=== PATIENT | female | born 1975 | race African-American/Black ===

== ENCOUNTER 2019-01-09 10:51 | Inpatient (IN) | payer MEDICARE, MEDICAID ==
[~2019-01-09] VITALS: Ht 167.6 cm; Wt 98.0 kg
[~2019-01-09 10:51] MED LIST: FOLIC ACID1 MG PO; HYDROCODONE-APA1 TAB PO; IPRAT-ALBUT 0.5-3 ML INH; LEVAQUIN PREMI750 MG PO; LEVAQUIN750 MG PO; NICODERM C1 PATCH .2 TRANSDERM; TREXALL10 MG PO
--- NOTE | 2019-01-09 11:19 | NUR ---
INFLUENZA SWAB COLLECTED AND SENT TO LAB.
[2019-01-09 11:25] LABS: BASOPHILS 0.6 % (0-2); EOSINOPHILS 5.5 % (0-7); HEMATOCRIT 43.3 % (36.0-48.0); HEMOGLOBIN 14.2 g/dL (12-16); IMMATURE GRANULOCYTES 0.3 % (0-5); LYMPHOCYTES 24.4 % (15-50); MCH 28.7 pg (26.0-34.0); MCHC 32.8 g/dL (31.0-37.0); MCV 87.7 fL (80.0-100.0); MEAN PLATELET VOLUME 10.5 fL (7.4-10.4); NEUTROPHILS 56.2 % (40-80); PLATELET COUNT 259 10x3/uL (130-400); RBC 4.94 10x6/uL (4.00-5.40); RDW 14.6 % (11.5-14.5); WBC 6.7 10x3/uL (4.8-10.8)
[2019-01-09 11:40] LABS: APTT 26.7 SECONDS (22.8-39.4); INR 1.09 (0.85-1.17); PROTIME 13.6 SECONDS (11.6-15.0)
[2019-01-09 11:45] LABS: ALKALINE PHOSPHATASE 224 U/L (46-116); ALT (SGPT) 26 U/L (10-68); BILIRUBIN - TOTAL 0.74 mg/dL (0.2-1.3); CALC OSMOLALITY 277 mosm/kg (275-300); CALCIUM 9.1 mg/dL (8.5-10.1); CARBON DIOXIDE 22.8 mmol/L (21.0-32.0); CHLORIDE - SERUM 104 mmol/L (98-107); CREATININE - SERUM 1.3 mg/dL (0.6-1.3); POTASSIUM - SERUM 3.9 mmol/L (3.5-5.1); PROTEIN - SERUM 8.1 g/dL (6.4-8.2); SODIUM 139 mmol/L (136-145); UREA NITROGEN 12 mg/dL (7-18); eGFR NON AFRICAN AMERICAN 47 mL/min (90-120)
[2019-01-09 11:49] LABS: GLUCOSE 98 mg/dL (74-106)
[2019-01-09 11:57] LABS: CKMB 0.3 U/L (0.0-3.6); CREATINE KINASE 72 UL (21-215); PRO BNP 153 pg/mL (0-125)
[2019-01-09 11:58] LABS: TROPONIN-I < 0.017 ng/mL (0.000-0.060)
--- NOTE | 2019-01-09 12:20 | NUR ---
PATIENT TO RESTROOM WITHOUT ASSIST. NO NEEDS NOTED UPDATED ON PLAN OF CARE AND DELAYS IN CARE. WILL CONTINUE TO MONITOR.
[2019-01-09 13:04] VITALS: BP 119/86
[2019-01-09] MEDS ORDERED: LYRICA75 MG PO (14:20)
[2019-01-09] MEDS ORDERED: NAPROXEN375 M1 PO (14:22)
[2019-01-09] MEDS ORDERED: OMEPRAZOLE20 M1 PO (14:23)
[2019-01-09] MEDS ORDERED: ZANAFLEX2 M1 PO (14:23)
[2019-01-09 14:25] VITALS: BP 120/80; BMI 34.9
--- NOTE | 2019-01-09 18:23 | HP ---
PATIENT: GABRIEL PEDROZA MEDICAL RECORD: [id number] ACCOUNT: [id number] LOCATION:D.MS [id number] : 71 ADMISSION DATE: 01/09/19 PCP: ALLEN CAZARES MD HISTORY AND PHYSICAL EXAMINATION DATE OF ADMISSION: 01/09/2019 CHIEF COMPLAINT: Shortness of breath, fever, and cough. HISTORY: This is a 43-year-old -[place] female who has pulmonary sarcoidosis, followed by senior advisor at [facility]. She has had a fairly chronic cough now since August, but she had acute onset last night of increased shortness of breath, wheeze, and fever up to 101, so she came in to be evaluated. In the ED, she was positive for both influenza A and B. She did have her flu shot this year. CBC was normal. Chest x-ray showed early pneumonia. She is admitted. PAST MEDICAL AND SURGICAL HISTORY: Sarcoidosis, followed at [facility]; cataracts; arthritis; and history of cervical cancer. 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 ALLERGIES: SULFA AND TAPE. HOME MEDICATIONS: Methotrexate four pills every Thursday. She is supposed to be on folic acid every day, but forgets. She takes tizanidine 2 mg twice a day and Lyrica 75 mg twice a day. She sometimes takes prednisone. She has it worked out from the senior advisor at [facility] that she will take up to 40 mg a day for increased respiratory problems and then come back off of it. HABITS: She does smoke "a little." No alcohol or drugs. SOCIAL HISTORY: She has lived in [place] for about 4 years. She is single. She lives alone. Her primary care doctor is in [place] because she states she cannot find a primary care doctor here that will take her. She sees a senior advisor at [facility] for her sarcoid. FAMILY HISTORY: Father of recurrent colon cancer. He also had heart attack. Mother is alive. She has diabetes. REVIEW OF SYSTEMS: GENERAL: No major weight changes. HEENT: No particular sinus or allergy problems. RESPIRATORY: She has pulmonary sarcoidosis. CARDIAC: No history of chest pain or palpitations. No history of heart disease. GASTROINTESTINAL: No diarrhea, constipation, or heartburn. GENITOURINARY: No significant problems there. MUSCULOSKELETAL: Few joint aches and pains. PSYCHIATRIC: No depression or melancholia. NEUROLOGIC: No migraines or seizure. PHYSICAL EXAMINATION: VITAL SIGNS: Temperature 99.9, pulse 94, respirations 18, and blood pressure HISTORY AND PHYSICAL [id number] ABEBE RAY,GABRIEL L 138/80. GENERAL: She does not appear in acute distress currently. HEENT: Grossly within normal limits. NECK: She has palpable mass on the right side of her neck, is being followed by [facility], probably sarcoid. HEART: Regular rate and rhythm without murmur. LUNGS: Mild diffuse wheezes. ABDOMEN: Soft. EXTREMITIES: No edema. LABORATORY DATA: Influenza A positive. Influenza B positive. CBC with white count of 6700, hemoglobin 14.2, and hematocrit 43.3. INR 1.09. Basic metabolic panel is all normal. Liver functions are okay except alkaline phosphatase elevated at 224. Troponin is negative. ProBNP 153. DIAGNOSTIC DATA: Chest x-ray; minimal airspace disease in medial lung bases. May relate to atelectasis and/or early pneumonia. ASSESSMENT: 1. Pneumonia. 2. Influenza A. 3. Influenza B. 4. Pulmonary sarcoidosis, on methotrexate. PLAN: We will admit. Start Zithromax, Rocephin, and Tamiflu. We will give steroids and breathing treatments. Other tests or procedures as warranted. TRANSINT:[id number] Voice Confirmation ID: [id number] DOCUMENT ID: [id number] ALLEN CAZARES MD at 1823 CC: [id number] DICTATION DATE: 01/09/19 1545 BENDING ROLL HAND: 01/09/19 1635 ADM IN [facility] [place] [id number] [place] [address]
--- NOTE | 2019-01-09 19:18 | NUR ---
AZYTHROMYCIN INFUSING. PT CALLS ME AND WELPS ARE APPEARING ON CHEST. STOPPED INFUSION. CALLED DR CAZARES WHO DC ORDER. DC ROCEPHIN AND STARTED LEVAQUIN. FAMILY AT BEDSIDE. NO S/S OF ACUTE DISTRESS. CL IN PLACE.
--- NOTE | 2019-01-09 19:58 | NUR ---
RECEIVED REPORT, ASSUMED CARE, DENIES NEEDS, FAMILY AT BEDSIDE, CALL LIGHT IN REACH, BED LOWEST POSITION, LAC SL, NO S/S OF DISTRESS NOTED, BREATHING EVEN UNLABORED, SITTING UP IN BED, WILL CONTINUE POC
[2019-01-09 20:00] VITALS: BP 129/80
[2019-01-10] VITALS: BP 91/46
--- NOTE | 2019-01-10 02:05 | NUR ---
patient in bed with no s/s of distress no neededs noted resting resprations even and unlabored call light in reach.
[2019-01-10 03:00] VITALS: BP 94/53
[2019-01-10 06:32] LABS: BASOPHILS 0.2 % (0-2); EOSINOPHILS 0 % (0-7); HEMATOCRIT 42.7 % (36.0-48.0); HEMOGLOBIN 13.9 g/dL (12-16); IMMATURE GRANULOCYTES 0.2 % (0-5); LYMPHOCYTES 21.3 % (15-50); MCH 28.2 pg (26.0-34.0); MCHC 32.6 g/dL (31.0-37.0); MCV 86.6 fL (80.0-100.0); MEAN PLATELET VOLUME 10.8 fL (7.4-10.4); NEUTROPHILS 77.3 % (40-80); PLATELET COUNT 255 10x3/uL (130-400); RBC 4.93 10x6/uL (4.00-5.40); RDW 14.6 % (11.5-14.5)
[2019-01-10 06:45] LABS: ANION GAP 16.3 mmol/L (8-16); CALCIUM 9.5 mg/dL (8.5-10.1); CREATININE - SERUM 1.3 mg/dL (0.6-1.3); POTASSIUM - SERUM 4.3 mmol/L (3.5-5.1)
[2019-01-10 07:24] LABS: WBC 4.8 10x3/uL (4.8-10.8)
--- NOTE | 2019-01-10 07:45 | NUR ---
REPORT RECIEVED ASSUMED CARE. PATIENT IN BED WITH IV INTACT. NO COMPLAINTS OR SIGNS OF DISTRESS. CALL LIGHT WITHIN REACH.
[2019-01-10 08:03] VITALS: BP 120/72
--- NOTE | 2019-01-10 08:22 | NUR ---
PATIENT RECIEVED SCHEDULED MEDS. JUDY STARTED IVPB. NO COMPLAINTS OR SIGNS OF DISTRESS. CALL LIGHT WITHIN REACH.
--- NOTE | 2019-01-10 09:30 | NUR ---
PATIENT IN BED WITH IV INTACT. ANTIBIOTIC INFUSING AT THIS TIME. PATIENT STATES HER LEGS ARE TINGLING AND THAT SHE FEELS HIGH. EXPLAINED TO PATIENT THAT I HAVENT GIVEN HER ANYTHING THAT SHOULD MAKE HER FEEL THAT WAY UNLESS IT IS HER LYRICA. PATIENT VERBALIZED UNDERSTANDING. THEN STATES THAT SHE THINKS IT WAS THE LOVENOX SHOT. EXPLAINED TO PATIENT THAT THE LOVENOX DOES NOT HAVE THOSE KIND OF SIDE EFFECTS. PATIENT STATED PROBABLY JUST BECAUSE SHE WASNT FEELING WELL. EXPLAINED I WOULD CONTINUE TO MONITOR HER. CALL LIGHT JAMES RIOS.
--- NOTE | 2019-01-10 10:45 | NUR ---
PATIENT IV OUT. STATED SHE TRIED TO KEEP IT IN. EXPLAINED IT WAS OK WOULD JUST RESTART A NEW ONE WHEN SHE NEEDED IT. VERBALIZED UNDERSTANDING. NO COMPLAINTS OR SIGNS OF DISTRESS AT THIS TIME. CALL LIGHT WITHIN REACH.
[2019-01-10 12:08] VITALS: BP 108/71
[2019-01-10 12:29] VITALS: Ht 167.6 cm; Wt 98.0 kg
--- NOTE | 2019-01-10 14:18 | NUR ---
PATIENT IN BED WITH NO COMPLAINTS OR SIGNS OF DISTRESS. EYES CLOSED RESTING QUIETLY. CALL LIGHT WITHIN REACH.
--- NOTE | 2019-01-10 17:00 | NUR ---
IV STARTED IN LEFT HAND. 22G X 3 STICKS. PATIENT TOLERATED WITH SMALL AMOUNT OF PAIN. CALL LIGHTW ITHIN REACH.
--- NOTE | 2019-01-10 19:45 | NUR ---
PT RESTING IN BED. ALERT AND ORIENTED. NO SIGNS OF DISTRESS. BREATHING EVEN AND UNLABORED. PT STATES NO PROBLEMS AT THIS TIME. IV SITE RT HAND DRESSING CLEAN DRY AND INTACT. NO SIGNS OF INFECTION. SKIN CLEAN DRY AND INTACT. NO SIGNS OF INFECTION ANYWHERE. BOWEL SOUNDS ACTIVE. NO LOWER LEG SWELLING PRESENT. BED LOWERED AND LOCKED. BED RAILS UP X1. WILL CONTINUE PLAN OF CARE. CALL LIGHT IN REACH.
[2019-01-10 20:55] VITALS: BP 113/69
[2019-01-11 02:14] VITALS: BP 85/55
[2019-01-11 04:32] VITALS: BP 98/74
--- NOTE | 2019-01-11 05:00 | NUR ---
EYES CLOSED RESPOIRATIONS WITH EASE AND UNLABORED. SR UP X2 CALL LIGHT WITHIN REACH.
--- NOTE | 2019-01-11 09:46 | NUR ---
PT ON CL COMPLAINSOF BURNING AND ITCHING AT IV SITE UP HER ARM, PT STATED THIS HAPPENED WITH LAST ABX WELL. SLOWED RATE TO [address] COURTNEY OFFICE AND RELAYED MESSAGE TO APRIL SUTTON. APRIL CALLED BACK STATING DR CAZARES ADVISED TO CEASE MEDICATION AND HE WILL ADRESS WHEN HE COMES OVER, WENT TO STOP IV AND PT STATED A LOT BETTER SINCE I SLOWED RATE DOWN, PT REQUESTED ABX NOT BE STOPPED AND TO CONTINUE TO RUN AT SLOWER RATE. CALLED DR ESPINO OFFICE BACK AND LET APRIL KNOW PT REQUEST
--- NOTE | 2019-01-11 10:31 | NUR ---
PT STATED SHE IS VERY TIRED THIS MORNING, UNABLE TO FINISH BREAKFAST, STATED SHE WAS UP ALOT AND WALKED A LOT LAST NIGHT, ENCOURAGED PT TO GET PLEANTY OF REST AND FLUIDS IN ORDER TO GET BETTER OR WILL CONTINUE TO HAVE SPURTS OF EXHAUSTION. CONTINUE WITH PLAN OF CARE
[2019-01-11 12:04] VITALS: BP 106/47
--- NOTE | 2019-01-11 13:42 | NUR ---
CIERRAVD CALL FROM PT SISTER STATING SHE RECEIVED CALL FROM PT STATING NO ONE HAS BEEN IN TO CHECK ON HER AND THAT SHE IS VERY WEAK TODAY. WENT TO CHECK ON PT AGAIN AND SHE STATED SHE HAS BEEN ASLEEP AND UNAWARE OF SAYING ANYTHING LIKE THATNO NEEDS VOICED, CONTINUE WITH PLAN OF CARE
--- NOTE | 2019-01-11 16:15 | NUR ---
PT SITTING IN CHAIR AT BEDSIDE, STATED SHE HAD TO GO OUTSIDE FOR FRESH AIR, C/O DRY MOUTH ASKED HER IF SHE WOULD LIKE HER O2 HUMIDIFIED PT DECLINED, REQUESTED HARD CANDY AND ICE CHIPS, NOOTHER NEEDS VOICED, CONTINUE WITH PLAN OF CARE
[2019-01-11 17:24] VITALS: BP 106/56
--- NOTE | 2019-01-11 20:45 | NUR ---
UP AMBULATING IN HALLWAY WITH MASK ON. RESP UNLABORED. NO DISTRESS NOTED.SL TO RIGHT HAND INTACT WITHOUT REDNESS OR EDEMA NOTED. CL IN REACH
[2019-01-12 00:11] VITALS: BP 123/71
--- NOTE | 2019-01-12 02:46 | NUR ---
RESTING QUITELY IN BED RESP UNLABORED, NO APPPARENT DISTRESS CALL HARDY RIOS
[2019-01-12 04:33] VITALS: BP 115/62
--- NOTE | 2019-01-12 06:22 | NUR ---
RESTING QUIELTY.NO COMPLAITNS VOICED. CL IN REACH
--- NOTE | 2019-01-12 08:17 | NUR ---
PT SITTING UP IN BED PLAYING ON COMPUTER. NO S/S OF ACUTE DISTRESS. CL IN PLACE.
[2019-01-12 09:00] VITALS: BP 124/77
--- NOTE | 2019-01-12 12:25 | NUR ---
NUTRITION F/U CHART REVIEWED. PT VISIT. TOLERATING REG DIET WITH GOOD INTAKE RECENT MEALS. WILL CONTINUE TO PROVIDE DIET, HONOR FOOD PREFERENCES. RD FOLLOWING
[2019-01-12 13:56] VITALS: BP 133/85
--- NOTE | 2019-01-12 16:08 | MORECARE ---
CASE MANAGEMENT DISCHARGE SUMMARY PATIENT: GABRIEL PEDROZA UNIT: [id number] ADM DATE: 01/09/19 AGE: 43 : 71 SEX: F ROOM/BED: D.2228 AUTHOR: LARISA MCNEAL PHYSICIAN: REFERRING PHYSICIAN: ALLEN CAZARES MD DATE OF SERVICE: 01/12/19 Discharge Plan Patient Name: GABRIEL PEDROZA Facility: [facility]:[place] : 1975 Planned Disposition: Anticipated Discharge Date: Discharge Date: Expected LOS: Initial Reviewer: [email or web address] Initial Review Date: 01/12/2019 Generated: 01/12/19 5:08 pm Comments DCP- Discharge Planning Updated by [email or web address]: Judy Norton on 01/12/19 2:[address] I have attempted to meet with patient yesterday and now, she is not in the room. I will attempt again later. CM will continue to follow and assist with discharge planning/needs. Patient Name: GABRIEL PEDROZA Page [id number] at 1608 All edits/amendments must be made on the electronic document DICTATION DATE: 01/12/191606 ASP NET SOFTWARE DEVELOPER: LIZZY 01/12/191606 RPT#: [id number] DC DATE: STATUS: ADM IN [facility] [address] [place] [address] END OF REPORT
--- NOTE | 2019-01-12 19:45 | NUR ---
PT RESTING IN BED. ALERT AND ORIENTED. NO SIGNS OF DISTRESS. BREATHING EVEN AND UNLABORED. PT STATES NO PROBLEMS AT THIS TIME. SKIN CLEAN DRY AND INTACT. IV SITE LT AC DRESSING CLEAN DRY AND INTACT. NO SIGNS OF INFECTION. BOWEL SOUNDS ACTIVE. NO LOWER LEG SWELLING PRESENT. WILL CONTINUE PLAN OF CARE. CALL LIGHT IN REACH. BED LOWERED AND LOCKED. BED RAILS UP X1.
--- NOTE | 2019-01-12 20:22 | NUR ---
IV NOT FLUSHING. DC IV WITH TIP INTACT. RESITED IV TO L AC. FLUSHED WELL. NO S/S OF ACUTE DISTRESS. CL IN PLACE.
--- NOTE | 2019-01-13 05:51 | NUR ---
EYES CLOSED RESPIRATIONS WITH EASE AND UNLABORED. SR UP X2 CALL LIGHT WITHIN REACH.
--- NOTE | 2019-01-13 07:01 | NUR ---
MORNING ASSESSMENT COMPLETE. SEE ASSESSMENT FLWJOSEEET FOR FURTHER DETAILS. PT LYING IN BED AAO X4 TO PERSON, PLACE, TIME, AND SITUATION. DENIES NEEDS RO CONCERNS AT THIS TIME. NO SIGNS OF DISTRESS NOTED. CL IN REACH. SIDE RAILS UP X3 FOR PATIENT SAFETY
[2019-01-13] MEDS ORDERED: LEVAQUIN750 MG PO (08:23)
[2019-01-13] MEDS ORDERED: ROBITUSSIN AC (WITH PO (08:24)
[2019-01-13 08:38] VITALS: BP 133/42
--- NOTE | 2019-01-13 09:01 | MORECARE ---
CASE MANAGEMENT DISCHARGE SUMMARY PATIENT: GABRIEL PEDROZA UNIT: [id number] ADM DATE: 01/09/19 AGE: 43 : 71 SEX: F ROOM/BED: D.2228 AUTHOR: LARISA MCNEAL PHYSICIAN: REFERRING PHYSICIAN: ALLEN CAZARES MD DATE OF SERVICE: 01/13/19 Discharge Plan Patient Name: GABRIEL PEDROZA Facility: [facility]:[place] : 1975 Planned Disposition: Home Anticipated Discharge Date: 01/13/19 Discharge Date: Expected LOS: 4 Initial Reviewer: [email or web address] Initial Review Date: 01/13/2019 Generated: 01/13/19 10:01 am Comments DCP- Discharge Planning Updated by [email or web address]: Judy Norton on 01/12/19 2:[address] I have attempted to meet with patient yesterday and now, she is not in the room. I will attempt again later. CM will continue to follow and assist with discharge planning/needs. Last DP export: 01/12/19 3:08 p Patient Name: GABRIEL PEDROZA Page [id number] at 0901 All edits/amendments must be made on the electronic document DICTATION DATE: 01/13/19899 CONFERENCE ASSISTANT: LIZZY 01/13/19 09 RPT#: [id number] DC DATE: STATUS: ADM IN [facility] [address] [place] [address] END OF REPORT
--- NOTE | 2019-01-13 09:09 | MORECARE ---
CASE MANAGEMENT DISCHARGE SUMMARY PATIENT: GABRIEL PEDROZA UNIT: [id number] ADM DATE: 01/09/19 AGE: 43 : 73 SEX: F ROOM/BED: D.2228 AUTHOR: LARISA MCNEAL PHYSICIAN: REFERRING PHYSICIAN: ALLEN CAZARES MD DATE OF SERVICE: 01/13/19 Discharge Plan Patient Name: GABRIEL PEDROZA Facility: [facility]:[place] : 1975 Planned Disposition: Home Anticipated Discharge Date: 01/13/19 Discharge Date: Expected LOS: 4 Initial Reviewer: [email or web address] Initial Review Date: 01/13/2019 Generated: 01/13/19 10:09 am Comments DCP- Discharge Planning Updated by [email or web address]: Judy Norton on 01/13/19 8:[address] Patient Name: GABRIEL PISANO Admission Status: ER Accout number: [id number] Admission Date: 01-09-2019 : 1975 Admission Diagnosis: Attending: ALLEN CAZARES Current LOS: 4 Anticipated DC Date: 01-13-2019 Planned Disposition: Home Primary Insurance: [facility] MEDICARE SOLUTIONS Discharge Planning Comments: CM met with patient, she is alone in the room. States she lives alone. States she is independent with all ADL's and IADL's. States she will "have someone take me home" when asked about discharge transportation. States she does have a nebulizer that she believes comes from [employer] on [address]. States she needs new tubing. I have asked RT to do a walk test for possible need for home oxygen. CM will continue to follow and assist with discharge planning/needs. Band Ripsaw Operator: Judy Norton DCP- Discharge Planning Updated by [email or web address]: Judy Norton on 01/12/19 2:[address] I have attempted to meet with patient yesterday and now, she is not in the room. I will attempt again later. CM will continue to follow and assist with discharge planning/needs. DCPIA - Discharge Planning Initial Assessment Updated by [email or web address]: Judy Norton on 01/13/19 9:05 am * Is the patient Alert and Oriented? Yes * How many steps to enter\\exit or inside your home? 0/0 * PCP Dr. Cazares for [place] Dr. Shani Campbell for Sarcoidosis * Pharmacy [facility] * Preadmission Environment Home Alone * ADLs Independent * Equipment Cane Nebulizer * List name and contact numbers for known caregivers / representatives who currently or will assist patient after discharge: Car Blake [phone] * Verbal permission to speak to the caregivers and representatives has been obtained from the patient. Yes * Community resources currently utilized None * Additional services required to return to the preadmission environment? No * Can the patient safely return to the preadmission environment? Yes * Has this patient been hospitalized within the prior 30 days at any hospital? No Last DP export: 01/13/19 8:01 a Patient Name: GABRIEL PEDROZA Page [id number] at 0909 All edits/amendments must be made on the electronic document DICTATION DATE: 01/13/19908 MANAGER ATHLETICS: LIZZY 01/13/19908 RPT#: [id number] DC DATE: STATUS: ADM IN [facility] [address] [place] [address] END OF REPORT
--- NOTE | 2019-01-13 09:31 | MORECARE ---
CASE MANAGEMENT DISCHARGE SUMMARY PATIENT: GABRIEL PEDROZA UNIT: [id number] ADM DATE: 01/09/19 AGE: 43 : 71 SEX: F ROOM/BED: D.2228 AUTHOR: LARISA MCNEAL PHYSICIAN: REFERRING PHYSICIAN: ALLEN CAZARES MD DATE OF SERVICE: 01/13/19 Discharge Plan Patient Name: GABRIEL PEDROZA Facility: [facility]:[place] : 1975 Planned Disposition: Home Anticipated Discharge Date: 01/13/19 Discharge Date: Expected LOS: 4 Initial Reviewer: [email or web address] Initial Review Date: 01/13/2019 Generated: 01/13/19 10:30 am Comments DCP- Discharge Planning Updated by [email or web address]: Judy Norton on 01/13/19 8:[address] Patient Name: GABRIEL PISANO Admission Status: ER Accout number: [id number] Admission Date: 01-09-2019 : 1975 Admission Diagnosis: Attending: ALLEN CAZARES Current LOS: 4 Anticipated DC Date: 01-13-2019 Planned Disposition: Home Primary Insurance: [facility] MEDICARE SOLUTIONS Discharge Planning Comments: CM met with patient, she is alone in the room. States she lives alone. States she is independent with all ADL's and IADL's. States she will "have someone take me home" when asked about discharge transportation. States she does have a nebulizer that she believes comes from [facility] on [address]. States she needs new tubing. I have asked RT to do a walk test for possible need for home oxygen. CM will continue to follow and assist with discharge planning/needs. Bearing Maker: Judy Norton DCP- Discharge Planning Updated by [email or web address]: Judy Norton on 01/12/19 2:[address] I have attempted to meet with patient yesterday and now, she is not in the room. I will attempt again later. CM will continue to follow and assist with discharge planning/needs. DCPIA - Discharge Planning Initial Assessment Updated by [email or web address]: Judy Norton on 01/13/19 9:05 am * Is the patient Alert and Oriented? Yes * How many steps to enter\\exit or inside your home? 0/0 * PCP Dr. Cazares for [place] Dr. Shani Campbell for Sarcoidosis * [facility] * Preadmission Environment Home Alone * ADLs Independent * Equipment Cane Nebulizer * List name and contact numbers for known caregivers / representatives who currently or will assist patient after discharge: Car bergman - [phone] * Verbal permission to speak to the caregivers and representatives has been obtained from the patient. Yes * Community resources currently utilized None * Additional services required to return to the preadmission environment? No * Can the patient safely return to the preadmission environment? Yes * Has this patient been hospitalized within the prior 30 days at any hospital? No External Providers External Provider: [id number] Next Contact Date: Service Request Date: Service Type: Resolution: Reviewer: Comments: Last DP export: 01/13/19 8:09 a Patient Name: GABRIEL PEDROZA Page [id number] at 0931 All edits/amendments must be made on the electronic document DICTATION DATE: 01/13/19929 POLICE MANAGER: LIZZY 01/13/19929 RPT#: [id number] DC DATE: STATUS: ADM IN [facility] [address] [place] [address] END OF REPORT
--- NOTE | 2019-01-13 09:57 | MORECARE ---
CASE MANAGEMENT DISCHARGE SUMMARY PATIENT: GABRIEL PEDROZA UNIT: [id number] ADM DATE: 01/09/19 AGE: 43 : 71 SEX: F ROOM/BED: D.2228 AUTHOR: ELIZABET,DOC PHYSICIAN: REFERRING PHYSICIAN: ALLEN CAZARES MD DATE OF SERVICE: 01/13/19 Discharge Plan Patient Name: GABRIEL PEDROZA Facility: [facility]:[place] : 1975 Planned Disposition: Home Anticipated Discharge Date: 01/13/19 Discharge Date: Expected LOS: 4 Initial Reviewer: [email or web address] Initial Review Date: 01/13/2019 Generated: 01/13/19 10:57 am Comments DCP- Discharge Planning Updated by [email or web address]: Judy Norton on 01/13/19 8:[address] [facility] is out of business, [facility] does not have nebulizer supplies at this time. I called [facility] [employer] and faxed clinical for new nebulizer tubing, they will mail to home, patient agrees. She has number and address on DME form for [employer]. DCP- Discharge Planning Updated by [email or web address]: Judy Norton on 01/13/19 8:[address] Patient Name: GABRIEL PISANO Admission Status: ER Accout number: [id number] Admission Date: 01-09-2019 : 1975 Admission Diagnosis: Attending: ALLEN CAZARES Current LOS: 4 Anticipated DC Date: 01-13-2019 Planned Disposition: Home Primary Insurance: [facility] MEDICARE SOLUTIONS Discharge Planning Comments: CM met with patient, she is alone in the room. States she lives alone. States she is independent with all ADL's and IADL's. States she will "have someone take me home" when asked about discharge transportation. States she does have a nebulizer that she believes comes from [facility] on [address]. States she needs new tubing. I have asked RT to do a walk test for possible need for home oxygen. CM will continue to follow and assist with discharge planning/needs. Nutritional Chemist: Judy Norton DCP- Discharge Planning Updated by [email or web address]: Judy Norton on 01/12/19 2:[address] I have attempted to meet with patient yesterday and now, she is not in the room. I will attempt again later. CM will continue to follow and assist with discharge planning/needs. DCPIA - Discharge Planning Initial Assessment Updated by [email or web address]: Judy Norton on 01/13/19 9:05 am * Is the patient Alert and Oriented? Yes * How many steps to enter\\exit or inside your home? 0/0 * PCP Dr. Cazares for [place] Dr. Shani Hilario - [place] for Sarcoidosis * [facility] * Preadmission Environment Home Alone * ADLs Independent * Equipment Cane Nebulizer * List name and contact numbers for known caregivers / representatives who currently or will assist patient after discharge: Car bergman - [phone] * Verbal permission to speak to the caregivers and representatives has been obtained from the patient. Yes * Community resources currently utilized None * Additional services required to return to the preadmission environment? No * Can the patient safely return to the preadmission environment? Yes * Has this patient been hospitalized within the prior 30 days at any hospital? No Last DP export: 01/13/19 8:30 a Patient Name: GABRIEL PEDROZA Page 98199 at 0957 All edits/amendments must be made on the electronic document DICTATION DATE: 01/13/19956 SPOOL WORKER: LIZZY 01/13/19956 RPT#: [id number] DC DATE: STATUS: ADM IN [facility] [address] [place] [address] END OF REPORT
--- NOTE | 2019-01-13 10:51 | MORECARE ---
CASE MANAGEMENT DISCHARGE SUMMARY PATIENT: GABRIEL PEDROZA UNIT: [id number] ADM DATE: 01/09/19 AGE: 43 : 71 SEX: F ROOM/BED: D.2228 AUTHOR: LARISA MCNEAL PHYSICIAN: REFERRING PHYSICIAN: ALLEN CAZARES MD DATE OF SERVICE: 01/13/19 Discharge Plan Patient Name: GABRIEL PEDROZA Facility: [facility]:[place] : 1975 Planned Disposition: Home Anticipated Discharge Date: 01/13/19 Discharge Date: Expected LOS: 4 Initial Reviewer: [email or web address] Initial Review Date: 01/13/2019 Generated: 01/13/19 11:51 am Comments DCP- Discharge Planning Updated by [email or web address]: Judy Norton on 01/13/19 9:[address] Her room air sat is 100% resting and with exertion, does not qualify for home oxygen. I notified Celena she will only need the nebulizer tubing for her nebulizer. Home today. DCP- Discharge Planning Updated by [email or web address]: Judy Norton on 01/13/19 8:54 am [facility] is out of business, [facility] does not have nebulizer supplies at this time. I called [facility] [employer] and faxed clinical for new nebulizer tubing, they will mail to home, patient agrees. She has number and address on DME form for [employer]. DCP- Discharge Planning Updated by [email or web address]: Judy Norton on 01/13/19 8:[address] Patient Name: GABRIEL PISANO Admission Status: ER Accout number: [id number] Admission Date: 01-09-2019 : 1975 Admission Diagnosis: Attending: ALLEN CAZARES Current LOS: 4 Anticipated DC Date: 01-13-2019 Planned Disposition: Home Primary Insurance: [facility] MEDICARE SOLUTIONS Discharge Planning Comments: CM met with patient, she is alone in the room. States she lives alone. States she is independent with all ADL's and IADL's. States she will "have someone take me home" when asked about discharge transportation. States she does have a nebulizer that she believes comes from [facility] on [address]. States she needs new tubing. I have asked RT to do a walk test for possible need for home oxygen. CM will continue to follow and assist with discharge planning/needs. Lead Web Application Developer: Judy Norton DCP- Discharge Planning Updated by [email or web address]: Judy Norton on 01/12/19 2:[address] I have attempted to meet with patient yesterday and now, she is not in the room. I will attempt again later. CM will continue to follow and assist with discharge planning/needs. DCPIA - Discharge Planning Initial Assessment Updated by [email or web address]: Judy Norton on 01/13/19 9:05 am * Is the patient Alert and Oriented? Yes * How many steps to enter\\exit or inside your home? 0/0 * PCP Dr. Cazares for [place] Dr. Shani Campbell for Sarcoidosis * Pharmacy [facility] * Preadmission Environment Home Alone * ADLs Independent * Equipment Cane Nebulizer * List name and contact numbers for known caregivers / representatives who currently or will assist patient after discharge: Car bergman - [phone] * Verbal permission to speak to the caregivers and representatives has been obtained from the patient. Yes * Community resources currently utilized None * Additional services required to return to the preadmission environment? No * Can the patient safely return to the preadmission environment? Yes * Has this patient been hospitalized within the prior 30 days at any hospital? No Last DP export: 01/13/19 8:57 a Patient Name: GABRIEL PEDROZA Page [id number] at 1051 All edits/amendments must be made on the electronic document DICTATION DATE: 01/13/19 1051 SOLID DIE CUTTER: LIZZY 01/13/19 1051 RPT#: [id number] DC DATE: STATUS: ADM IN [facility] [address] [place] [address] END OF REPORT
--- NOTE | 2019-01-13 11:30 | NUR ---
PT D/C HOME VIA W/C WITH [id number]. WENT OVER ALL D/C IN STRUCTIONS; PATIENT STATES UNDERSTANDING.
--- NOTE | 2019-01-14 16:55 | MORECARE ---
CASE MANAGEMENT DISCHARGE SUMMARY PATIENT: GABRIEL PEDROZA UNIT: [id number] ADM DATE: 01/09/19 AGE: 43 : 71 SEX: F ROOM/BED: D.2228 AUTHOR: LARISA MCNEAL PHYSICIAN: REFERRING PHYSICIAN: ALLEN CAZARES MD DATE OF SERVICE: 01/14/19 Discharge Plan Patient Name: GABRIEL PEDROZA Facility: [facility]:[place] : 1975 Planned Disposition: Home Anticipated Discharge Date: 01/13/19 Discharge Date: 01/13/2019 Expected LOS: 4 Initial Reviewer: [email or web address] Initial Review Date: 01/13/2019 Generated: 01/14/19 5:54 pm Comments DCP- Discharge Planning Updated by [email or web address]: Judy Norton on 01/13/19 9:[address] Her room air sat is 100% resting and with exertion, does not qualify for home oxygen. I notified Celena she will only need the nebulizer tubing for her nebulizer. Home today. DCP- Discharge Planning Updated by [email or web address]: Judy Norton on 01/13/19 8:54 am [facility] is out of business, [facility] does not have nebulizer supplies at this time. I called [facility] and faxed clinical for new nebulizer tubing, they will mail to home, patient agrees. She has number and address on DME form for [facility]. DCP- Discharge Planning Updated by [email or web address]: Judy Norton on 01/13/19 8:[address] Patient Name: GABRIEL PISANO Admission Status: ER Accout number: [id number] Admission Date: 01-09-2019 : 1975 Admission Diagnosis: Attending: ALLEN CAZARES Current LOS: 4 Anticipated DC Date: 01-13-2019 Planned Disposition: Home Primary Insurance: [facility] MEDICARE SOLUTIONS Discharge Planning Comments: CM met with patient, she is alone in the room. States she lives alone. States she is independent with all ADL's and IADL's. States she will "have someone take me home" when asked about discharge transportation. States she does have a nebulizer that she believes comes from [facility] on [address]. States she needs new tubing. I have asked RT to do a walk test for possible need for home oxygen. CM will continue to follow and assist with discharge planning/needs. Transportation Project Manager: Judy Norton DCP- Discharge Planning Updated by [email or web address]: Judy Norton on 01/12/19 2:[address] I have attempted to meet with patient yesterday and now, she is not in the room. I will attempt again later. CM will continue to follow and assist with discharge planning/needs. DCPIA - Discharge Planning Initial Assessment Updated by [email or web address]: Judy Norton on 01/13/19 9:05 am * Is the patient Alert and Oriented? Yes * How many steps to enter\\exit or inside your home? 0/0 * PCP Dr. Cazares for [place] Dr. Shani Cambpell for Sarcoidosis * [facility] * Preadmission Environment Home Alone * ADLs Independent * Equipment Cane Nebulizer * List name and contact numbers for known caregivers / representatives who currently or will assist patient after discharge: Car bergman - [phone] * Verbal permission to speak to the caregivers and representatives has been obtained from the patient. Yes * Community resources currently utilized None * Additional services required to return to the preadmission environment? No * Can the patient safely return to the preadmission environment? Yes * Has this patient been hospitalized within the prior 30 days at any hospital? No Last DP export: 01/13/19 9:51 a Patient Name: GABRIEL PEDROZA Page [id number] at 1655 All edits/amendments must be made on the electronic document DICTATION DATE: 01/14/191653 KRAFT MILL OPERATOR: LIZZY 01/14/191653 RPT#: [id number] DC DATE:01/13/19 STATUS: DIS IN [facility] [address] [place] [address] END OF REPORT
== END 2019-01-13 12:16 | disposition home or self-care (01) | DRG 195 ==
LOC: D.ER 10:51 → D.MS 13:15 → D.EDHOLD 13:15 → D.MS 13:24
PROVIDERS: Family Medicine; ADMIT Family Medicine
DX: J11.00 Influenza due to unidentified influenza virus with unspecified type of pneumonia (principal); D86.9 Sarcoidosis, unspecified; J09.X2 Influenza due to identified novel influenza A virus with other respiratory manifestations; D86.0 Sarcoidosis of lung; L27.1 Localized skin eruption due to drugs and medicaments taken internally; T50.995A Adverse effect of other drugs, medicaments and biological substances, initial encounter

== ENCOUNTER 2019-09-18 22:03 | Inpatient (IN) | payer MEDICARE, MEDICAID ==
[~2019-09-18] VITALS: Ht 167.6 cm; Wt 99.8 kg
[~2019-09-18 22:03] MED LIST changes: +LYRICA75 MG PO; +NAPROXEN375 M1 PO; +OMEPRAZOLE20 M1 PO; +ROBITUSSIN AC (WITH PO; +ZANAFLEX2 M1 PO
[2019-09-18 22:39] LABS: EOSINOPHILS 7.6 % (0-7); HEMATOCRIT 42.8 % (36.0-48.0); HEMOGLOBIN 14.1 g/dL (12-16); IMMATURE GRANULOCYTES 0.2 % (0-5); LYMPHOCYTES 29.6 % (15-50); MCHC 32.9 g/dL (31.0-37.0); MCV 88.1 fL (80.0-100.0); MEAN PLATELET VOLUME 10.4 fL (7.4-10.4); MONOCYTES 10.7 % (2-11); NEUTROPHILS 50.9 % (40-80); PLATELET COUNT 259 10x3/uL (130-400); RBC 4.86 10x6/uL (4.00-5.40); RDW 14.7 % (11.5-14.5); WBC 6.2 10x3/uL (4.8-10.8)
[2019-09-18 22:46] LABS: INR 0.98 (0.85-1.17); PROTIME 12.5 SECONDS (11.6-15.0)
[2019-09-18 22:48] LABS: CALC OSMOLALITY 276 mosm/kg (275-300); CALCIUM 8.8 mg/dL (8.5-10.1); CHLORIDE - SERUM 106 mmol/L (98-107); CREATININE - SERUM 1.2 mg/dL (0.6-1.3); POTASSIUM - SERUM 3.5 mmol/L (3.5-5.1); SODIUM 139 mmol/L (136-145); UREA NITROGEN 8 mg/dL (7-18); eGFR NON AFRICAN AMERICAN 51 mL/min (90-120)
[2019-09-18 22:51] LABS: GLUCOSE 113 mg/dL (74-106)
[2019-09-18 23:01] LABS: ALBUMIN 3.3 g/dL (3.4-5.0); ALKALINE PHOSPHATASE 250 U/L (46-116); ALT (SGPT) 34 U/L (10-68); BILIRUBIN - TOTAL 0.58 mg/dL (0.2-1.3); CKMB 0.3 U/L (0.0-3.6); CREATINE KINASE 88 UL (21-215); PRO BNP 51 pg/mL (0-125); PROTEIN - SERUM 7.8 g/dL (6.4-8.2)
[2019-09-18 23:03] LABS: TROPONIN-I < 0.017 ng/mL (0.000-0.060)
[2019-09-18 23:30] VITALS: BP 134/90
--- NOTE | 2019-09-18 23:36 | NUR ---
RT AT PT BEDSIDE.
--- NOTE | 2019-09-19 00:13 | NUR ---
PT UPDATED ON PLAN OF CARE. PT PROVIDED SODA PER PT REQUEST. PT ALSO PROVIDED BLANKETS FOR COMFORT.
[2019-09-19] MEDS ORDERED: TUMS X-STR300 MG PO (01:27)
[2019-09-19] MEDS ORDERED: PROMETHAZINE W473 ML PO (01:29)
[2019-09-19 01:50] VITALS: BP 125/86; BMI 35.6
[2019-09-19 07:39] LABS: BASOPHILS 0.9 % (0-2); EOSINOPHILS 6.7 % (0-7); HEMATOCRIT 39.5 % (36.0-48.0); IMMATURE GRANULOCYTES 0.4 % (0-5); MCH 28.8 pg (26.0-34.0); MCHC 32.9 g/dL (31.0-37.0); MCV 87.4 fL (80.0-100.0); MEAN PLATELET VOLUME 10.2 fL (7.4-10.4); MONOCYTES 13.6 % (2-11); NEUTROPHILS 50.4 % (40-80); PLATELET COUNT 231 10x3/uL (130-400); RBC 4.52 10x6/uL (4.00-5.40); RDW 14.6 % (11.5-14.5); WBC 5.7 10x3/uL (4.8-10.8)
--- NOTE | 2019-09-19 07:54 | NUR ---
AWAKE AND ALERT. ORIENTED X3. NON PRODUCTIVE COUGH NOTED. C/O HEADACHE R/T COUGH. REQUESTED AND GIVNE 650 MG TYLENOL PO FOR SAME. WILL MONITOR. LUNGS ARE CLEAR BUT DIMINISHED IN LOWER LOBES. SKIN IS INTACT WITHOUT REDNESS. IV TO LEFT WRIST IS PATENT WITHOUT REDNESS AT INSERTION SITE. DENIES NEEDS.
[2019-09-19 08:36] VITALS: BP 118/81
--- NOTE | 2019-09-19 10:00 | NUR ---
HEADACHE IMPROVED AFTER TYLENOL. DENIES NEEDS. UP PERFORMING ADL'S AT THIS TIME.
[2019-09-19 12:48] VITALS: BP 112/69
[2019-09-19 14:12] VITALS: BMI 35.5
[2019-09-19 14:22] LABS: UDS - AMPHET NEGATIVE QUAL (NEGATIVE); UDS - BARB NEGATIVE QUAL (NEGATIVE); UDS - BENZO NEGATIVE QUAL (NEGATIVE); UDS - COCAINE NEGATIVE QUAL (NEGATIVE); UDS - OPIATE POSITIVE QUAL (NEGATIVE); UDS - PCP NEGATIVE QUAL (NEGATIVE); UDS - THC NEGATIVE QUAL (NEGATIVE)
[2019-09-19 16:30] VITALS: BP 100/68
--- NOTE | 2019-09-19 18:38 | NUR ---
ATE ALMOST ALL OF SUPPER TRAY. DENIES NEEDS. NO CHANGES NOTED.
--- NOTE | 2019-09-19 19:15 | NUR ---
PATIENT SITTING UP IN BED. PATIENT WANTS TO BE DISCONNECTED FROM TELEMETRY TO TAKE A SHOWER. DISCONNECTED PATIENT. ENCOURAGE PATIENT TO CALL WITH ANY NEEDS.
[2019-09-19 20:00] VITALS: BP 154/101
[2019-09-20] VITALS: BP 136/89
[2019-09-20 04:00] VITALS: BP 122/89
[2019-09-20 06:06] LABS: BASOPHILS 0.9 % (0-2); HEMOGLOBIN 13.4 g/dL (12-16); IMMATURE GRANULOCYTES 0.2 % (0-5); LYMPHOCYTES 29.6 % (15-50); MCH 28.2 pg (26.0-34.0); MCHC 31.9 g/dL (31.0-37.0); MCV 88.2 fL (80.0-100.0); MEAN PLATELET VOLUME 11.3 fL (7.4-10.4); MONOCYTES 9.8 % (2-11); NEUTROPHILS 50.5 % (40-80); PLATELET COUNT 247 10x3/uL (130-400); RBC 4.76 10x6/uL (4.00-5.40); RDW 14.7 % (11.5-14.5); WBC 5.8 10x3/uL (4.8-10.8)
[2019-09-20 06:21] LABS: ANION GAP 11.2 mmol/L (8-16); CALCIUM 10.2 mg/dL (8.5-10.1); CARBON DIOXIDE 26.5 mmol/L (21.0-32.0); CREATININE - SERUM 1.2 mg/dL (0.6-1.3); POTASSIUM - SERUM 3.7 mmol/L (3.5-5.1)
[2019-09-20 08:26] VITALS: BP 132/87
[2019-09-20 08:42] LABS: CKMB 0.4 U/L (0.0-3.6); CREATINE KINASE 59 UL (21-215); TROPONIN-I < 0.017 ng/mL (0.000-0.060)
[2019-09-20 09:02] VITALS: Ht 167.6 cm; Wt 99.8 kg
[2019-09-20] MEDS ORDERED: PERCOCET 5-3251 TAB PO (11:12)
--- NOTE | 2019-09-20 11:24 | NUR ---
PT ALERT X 4. BREATH SOUNDS CLEAR BILAT. TELEMETRY IN PLACE. IV TO LEFT FOREARM, SALINE LOCKED. PT REPORTING PAIN OF 8/10, WILL MONITOR. UPDATED PT MED LIST, PER PT REQUEST. BED LOW, CALL LIGHT IN REACH. NO OTHER NEEDS AT THIS TIME.
[2019-09-20 12:24] VITALS: BP 101/63
[2019-09-20 17:19] VITALS: BP 87/64
[2019-09-20 19:00] VITALS: BP 110/80
--- NOTE | 2019-09-20 23:00 | NUR ---
PT BP 84/54 AFTER RECIEVING BUMEX, PERCOCET, ZANAFLEX, AND LYRICA AT 2100. CALLED CYNTHIA [facility]ICER [facility]N AND MADE HIM AWARE OF LOW BP AND THAT THIS HAPPENED EARLIER TODAY WELL. CYNTHIA ORDERED 500ML BOLUS OF NS AND MONITOR BP, IF NO IMPROVEMENT ORDERED TO CALL BACK. BOLUS GIVEN. WILL CTM
[2019-09-21] VITALS (8 sets, daily range): BP systolic 82–126; BP diastolic 48–83
[2019-09-21 03:06] LABS: APPEARANCE HAZY (CLEAR); BILIRUBIN NEGATIVE (NEGATIVE); COLOR YELLOW (YELLOW); GLUCOSE NEGATIVE (NEGATIVE); KETONE NEGATIVE (NEGATIVE); NITRITE NEGATIVE (NEGATIVE); PROTEIN NEGATIVE (NEGATIVE); SPECIFIC GRAVITY 1.015 (1.005-1.020); UROBILINOGEN NORMAL (NORMAL)
[2019-09-21 03:10] LABS: EPITHELIAL CELLS 0-5 /hpf (0-5)
[2019-09-21 03:11] LABS: BACTERIA MODERATE /hpf (NEGATIVE)
[2019-09-21 06:20] LABS: BASOPHILS 1.1 % (0-2); EOSINOPHILS 7.4 % (0-7); HEMATOCRIT 46.7 % (36.0-48.0); HEMOGLOBIN 14.9 g/dL (12-16); IMMATURE GRANULOCYTES 0.4 % (0-5); MCH 28.6 pg (26.0-34.0); MCHC 31.9 g/dL (31.0-37.0); MCV 89.6 fL (80.0-100.0); MEAN PLATELET VOLUME 10.9 fL (7.4-10.4); MONOCYTES 12.4 % (2-11); NEUTROPHILS 55.7 % (40-80); PLATELET COUNT 245 10x3/uL (130-400); RBC 5.21 10x6/uL (4.00-5.40)
[2019-09-21 06:37] LABS: WBC 7.6 10x3/uL (4.8-10.8)
[2019-09-21 06:38] LABS: ANION GAP 11.8 mmol/L (8-16); CALCIUM 9.9 mg/dL (8.5-10.1); CARBON DIOXIDE 30.3 mmol/L (21.0-32.0); CREATININE - SERUM 1.5 mg/dL (0.6-1.3); POTASSIUM - SERUM 4.1 mmol/L (3.5-5.1)
--- NOTE | 2019-09-21 09:22 | NUR ---
PT ALERT X 4. BREATH SOUNDS CLEAR BILAT. TELEMETRY IN PLACE. IV TO LEFT FOREARM, SALINE LOCKED. PT REPORTING PAIN OF 9/10, MEDICATED PER ORDERS, WILL MONITOR. BED LOW, CALL LIGHT IN REACH. NO OTHER NEEDS AT THIS TIME.
--- NOTE | 2019-09-21 20:04 | NUR ---
HAS BEEN AMBULATING IN HALLWAY WITH MASK ON. PT IN DROPLET ISO FOR FLU. ALERT AND ORIENTED X4. RESP EVEN AND NONLABORED. CHRONIC NONPROD COUGH NOTED. RATES PAIN IN BACK 9. MEDICATED WITH TYLENOL. BBS CTA BUT DIMINISHED IN RLL. NO EDEMA NOTED. SR ELEVATED X2. CL IN REACH.
--- NOTE | 2019-09-21 21:30 | NUR ---
HAD SHOWER AT THIS TIME.
--- NOTE | 2019-09-21 23:28 | NUR ---
AMBULATING IN HALLWAY. DRINKING COFFEE. STATES SHE HAS CHRONIC INSOMNIA. NO DISTRESS. FACE MASK IN USE.
[2019-09-22 01:16] VITALS: BP 124/74
[2019-09-22 04:54] VITALS: BP 115/76
--- NOTE | 2019-09-22 05:00 | NUR ---
RESTING QUIETLY WITH EYES CLOSED. RESP EVEN AND NONLABORED. NO DISTRESS. CL IN REACH.
[2019-09-22 06:34] LABS: BASOPHILS 0.6 % (0-2); EOSINOPHILS 11.2 % (0-7); HEMATOCRIT 41.6 % (36.0-48.0); HEMOGLOBIN 13.3 g/dL (12-16); IMMATURE GRANULOCYTES 0.2 % (0-5); LYMPHOCYTES 29.2 % (15-50); MCH 28.2 pg (26.0-34.0); MCV 88.1 fL (80.0-100.0); MEAN PLATELET VOLUME 11.2 fL (7.4-10.4); MONOCYTES 10.8 % (2-11); PLATELET COUNT 221 10x3/uL (130-400); RBC 4.72 10x6/uL (4.00-5.40); RDW 14.7 % (11.5-14.5)
[2019-09-22 06:54] LABS: ANION GAP 13.1 mmol/L (8-16); CARBON DIOXIDE 26.4 mmol/L (21.0-32.0); CREATININE - SERUM 1.4 mg/dL (0.6-1.3); POTASSIUM - SERUM 3.5 mmol/L (3.5-5.1)
[2019-09-22 06:58] LABS: WBC 5.4 10x3/uL (4.8-10.8)
--- NOTE | 2019-09-22 07:25 | NUR ---
PT RESTING IN BED WATCHING TV. RESP EVEN AND UNLABORED. DENIES PAIN AT THIS TIME. SALINE LOC TO LEFT FOREARM, SITE WITHOUT REDNESS OR EDEMA. PT DENIES FURTHER NEEDS AT THIS TIME. CL WITHIN REACH. ENCOURAGED TO CALL WITH NEEDS. CONTINUE POC
[2019-09-22 08:48] VITALS: BP 112/76
--- NOTE | 2019-09-22 09:02 | MORECARE ---
CASE MANAGEMENT DISCHARGE SUMMARY PATIENT: GABRIEL ABEBE UNIT: [id number] ADM DATE: 09/19/19 AGE: 44 : 71 SEX: F ROOM/BED: D.2204 AUTHOR: LARISA MCNEAL PHYSICIAN: REFERRING PHYSICIAN: AMBROSIO MITCHELL MD DATE OF SERVICE: 09/22/19 Discharge Plan Patient Name: GABRIEL ABEBE Facility: [facility]:[place] : 1975 Planned Disposition: Home or Self Care Anticipated Discharge Date: Discharge Date: Expected LOS: Initial Reviewer: [email or web address] Initial Review Date: 09/19/2019 Generated: 09/22/19 10:01 am Comments DCP- Discharge Planning Updated by [id number]: Soco Hassan on 09/22/19 8:[address] Patient Name: GABRIEL ABEBE Admission Status: ER Accout number: [id number] Admission Date: 09-19-2019 : 1975 Admission Diagnosis: Attending: AMBROSIO MITCHELL Current LOS: 3 Anticipated DC Date: Planned Disposition: Home or Self Care Primary Insurance: [facility] MEDICARE SOLUTIONS Discharge Planning Comments: CM met with patient to complete initial dc planning assessment. CM educated patient on the CM role and verbal consent given by patient to complete assessment. Patient lives at home with her nephew where she stated she is independent with her care. At discharge patient plans to return home and feels this is a safe discharge. Her son will be her regional dedicated truck driver home at [place]. CM discussed availability of home health, rehab services, and medical equipment. She has a nebulizer at home that she gets her meds through [facility]. She did ask about house help. I explained to her about [employer], she did not think she had the correct MAXX, but would like to see if she would qualify for it. [facility] for home instead, I will send a referral to them. IMM served and explained. Patient denied known discharge needs at this time. CM will continue to follow and will assist as needed with dc plans/needs. Facilitator: Soco Hassan DCPIA - Discharge Planning Initial Assessment Updated by [email or web address]: Soco Hassan on 09/22/19 8:58 am * Is the patient Alert and Oriented? Yes * How many steps to enter\exit or inside your home? * PCP [facility] IN [place] * [facility] * Preadmission Environment Home with Family * ADLs Independent * Equipment Nebulizer * List name and contact numbers for known caregivers / representatives who currently or will assist patient after discharge: PUJA ADAM [phone] * Verbal permission to speak to the caregivers and representatives has been obtained from the patient. N/A * Community resources currently utilized None * Additional services required to return to the preadmission environment? Yes * Can the patient safely return to the preadmission environment? Yes * Has this patient been hospitalized within the prior 30 days at any hospital? No Coverage Notice Reviewer: [email or web address] Hassan Notice Issued Date-Time: 09/22/2019 8:50 Notice Type: IM Discharge Notice Notice Delivered To: Patient Relationship to Patient: Stitchdown Thread Laster Name: Delivery Method: HAND - Hand Delivered Roslyn Days: Prior Verbal Notification: Recipient Understood Notice: Yes Recipient Signature: Yes Med Rec Note Co-signed by Attending: Coverage Notice Comment: Reviewer: [id number] Hassan Notice Issued Date-Time: 09/22/2019 8:50 Notice Type: Patient Choice Letter Notice Delivered To: Patient Relationship to Patient: Stitchdown Thread Laster Name: Delivery Method: HAND - Hand Delivered Roslyn Days: Prior Verbal Notification: Recipient Understood Notice: Yes Recipient Signature: Yes Med Rec Note Co-signed by Attending: Coverage Notice Comment: [facility] Patient Name: GABRIEL ABEBE Page 16205 at 0902 All edits/amendments must be made on the electronic document DICTATION DATE: 09/22/19900 SEX WORKER OR ESCORT: DM 09/22/19900 RPT#: [id number] DC DATE: STATUS: ADM IN [facility] [address] [place] [address] END OF REPORT
[2019-09-22] MEDS ORDERED: TAMIFLU75 MG PO (09:33)
[2019-09-22] MEDS ORDERED: LEVAQUIN750 MG PO (09:37)
--- NOTE | 2019-09-22 11:09 | NUR ---
PT DISCHARGE INSTRUCTIONS PROVIDED FOR DISCHARGE. DISCUSSED FOLLOW UP APPOINTMENT, CONTINUATION OF HOME MEDICATIONS AND NEW PRESCRIPTIONS, PROVIDED EDUCATION REGARDING DISEASE PROCESS AND NEW MEDICATIONS. PT VOICES UNDERSTANDING, DENYING ANY QUESTIONS AT THIS TIME. IV DISCONTINUED FROM LEFT FOREARM, CATH INTACT.
--- NOTE | 2019-09-22 15:39 | MORECARE ---
CASE MANAGEMENT DISCHARGE SUMMARY PATIENT: GABRIEL ABEBE UNIT: [id number] ADM DATE: 09/19/19 AGE: 44 : 71 SEX: F ROOM/BED: D.2204 AUTHOR: LARISA MCNEAL PHYSICIAN: REFERRING PHYSICIAN: AMBROSIO MITCHELL MD DATE OF SERVICE: 09/22/19 Discharge Plan Patient Name: GABRIEL ABEBE Facility: [facility]:[place] : 1975 Planned Disposition: Home or Self Care Anticipated Discharge Date: Discharge Date: 09/22/2019 Expected LOS: Initial Reviewer: [email or web address] Initial Review Date: 09/19/2019 Generated: 09/22/19 4:39 pm DCP- Discharge Planning Updated by [email or web address]: Soco Hassan on 09/22/19 8:[address] Patient Name: GABRIEL ABEBE Admission Status: ER Accout number: [id number] Admission Date: 09-19-2019 : 1975 Admission Diagnosis: Attending: AMBROSIO MITCHELL Current LOS: 3 Anticipated DC Date: Planned Disposition: Home or Self Care Primary Insurance: [facility] MEDICARE SOLUTIONS Discharge Planning Comments: CM met with patient to complete initial dc planning assessment. CM educated patient on the CM role and verbal consent given by patient to complete assessment. Patient lives at home with her nephew where she stated she is independent with her care. At discharge patient plans to return home and feels this is a safe discharge. Her son will be her patient transportation driver home at [place]. CM discussed availability of home health, rehab services, and medical equipment. She has a nebulizer at home that she gets her meds through [facility]. She did ask about house help. I explained to her about [employer], she did not think she had the correct MAXX, but would like to see if she would qualify for it. [facility] for home instead, I will send a referral to them. IMM served and explained. Patient denied known discharge needs at this time. CM will continue to follow and will assist as needed with dc plans/needs. Bedspread Inspector: Soco Hassan DCPIA - Discharge Planning Initial Assessment Updated by [email or web address]: Soco Hassan on 09/22/19 8:58 am * Is the patient Alert and Oriented? Yes * How many steps to enter\exit or inside your home? * PCP [facility] IN [place] * Pharm[facility] * Preadmission Environment Home with Family * ADLs Independent * Equipment Nebulizer * List name and contact numbers for known caregivers / representatives who currently or will assist patient after discharge: PUJA ADAM [phone] * Verbal permission to speak to the caregivers and representatives has been obtained from the patient. N/A * Community resources currently utilized None * Additional services required to return to the preadmission environment? Yes * Can the patient safely return to the preadmission environment? Yes * Has this patient been hospitalized within the prior 30 days at any hospital? No External Providers External Provider: [facility] Contact Date: Service Request Date: Service Type: Resolution: Reviewer: Comments: Coverage Notice Reviewer: [email or web address] Lou Hassan Notice Issued Date-Time: 09/22/2019 8:50 Notice Type: IM Discharge Notice Notice Delivered To: Patient Relationship to Patient: Wire Photo Operator News Name: Delivery Method: HAND - Hand Delivered Roslyn Days: Prior Verbal Notification: Recipient Understood Notice: Yes Recipient Signature: Yes Med Rec Note Co-signed by Attending: Coverage Notice Comment: Reviewer: [id number] Lou Hassan Notice Issued Date-Time: 09/22/2019 8:50 Notice Type: Patient Choice Letter Notice Delivered To: Patient Relationship to Patient: Wire Photo Operator News Name: Delivery Method: HAND - Hand Delivered Roslyn Days: Prior Verbal Notification: Recipient Understood Notice: Yes Recipient Signature: Yes Med Rec Note Co-signed by Attending: Coverage Notice Comment: [facility] Last DP export: 09/22/19 8:02 Patient Name: GABRIEL ABEBE Page [id number] at 1539 All edits/amendments must be made on the electronic document DICTATION DATE: 09/22/191538 CARPENTER LABOR SUPERVISOR: LIZZY 09/22/191538 RPT#: [id number] DC DATE:09/22/19 STATUS: DIS IN [facility] [address] [place] [address] END OF REPORT
--- NOTE | 2019-09-22 16:12 | MORECARE ---
CASE MANAGEMENT DISCHARGE SUMMARY PATIENT: GABRIEL ABEBE UNIT: [id number] ADM DATE: 09/19/19 AGE: 44 : 71 SEX: F ROOM/BED: D.2204 AUTHOR: LARISA MCNEAL PHYSICIAN: REFERRING PHYSICIAN: AMBROSIO MITCHELL MD DATE OF SERVICE: 09/22/19 Discharge Plan Patient Name: GABRIEL ABEBE Facility: [facility]:[place] : 1975 Planned Disposition: Home or Self Care Anticipated Discharge Date: Discharge Date: 09/22/2019 Expected LOS: Initial Reviewer: [email or web address] Initial Review Date: 09/19/2019 Generated: 09/22/19 5:12 pm Comments DCP- Discharge Planning Updated by [email or web address]: Soco Hassan on 09/22/19 3:[address] REFERAL SENT TO [facility], SPOKE WITH KEHINDE DCP- Discharge Planning Updated by [id number]: Soco Hassan on 09/22/19 8:[address] Patient Name: GABRIEL ABEBE Admission Status: ER Accout number: [id number] Admission Date: 09-19-2019 : 1975 Admission Diagnosis: Attending: AMBROSIO MITCHELL Current LOS: 3 Anticipated DC Date: Planned Disposition: Home or Self Care Primary Insurance: [facility] MEDICARE SOLUTIONS Discharge Planning Comments: CM met with patient to complete initial dc planning assessment. CM educated patient on the CM role and verbal consent given by patient to complete assessment. Patient lives at home with her nephew where she stated she is independent with her care. At discharge patient plans to return home and feels this is a safe discharge. Her son will be her medical van driver home at [place]. CM discussed availability of home health, rehab services, and medical equipment. She has a nebulizer at home that she gets her meds through [facility]. She did ask about house help. I explained to her about [employer], she did not think she had the correct MAXX, but would like to see if she would qualify for it. [facility] for home instead, I will send a referral to them. IMM served and explained. Patient denied known discharge needs at this time. CM will continue to follow and will assist as needed with dc plans/needs. Infant Teacher: Soco Hassan DCPIA - Discharge Planning Initial Assessment Updated by [email or web address]: Soco Hassan on 09/22/19 8:58 am * Is the patient Alert and Oriented? Yes * How many steps to enter\exit or inside your home? * PCP [facility] IN [place] * Pharmacy [facility] [address] * Preadmission Environment Home with Family * ADLs Independent * Equipment Nebulizer * List name and contact numbers for known caregivers / representatives who currently or will assist patient after discharge: PUJA ADAM [phone] * Verbal permission to speak to the caregivers and representatives has been obtained from the patient. N/A * Community resources currently utilized None * Additional services required to return to the preadmission environment? Yes * Can the patient safely return to the preadmission environment? Yes * Has this patient been hospitalized within the prior 30 days at any hospital? No Coverage Notice Reviewer: [email or web address] Lou Hassan Notice Issued Date-Time: 09/22/2019 8:50 Notice Type: IM Discharge Notice Notice Delivered To: Patient Relationship to Patient: Radio Operator Name: Delivery Method: HAND - Hand Delivered Roslyn Days: Prior Verbal Notification: Recipient Understood Notice: Yes Recipient Signature: Yes Med Rec Note Co-signed by Attending: Coverage Notice Comment: Reviewer: [email or web address] - Soco Hassan Notice Issued Date-Time: 09/22/2019 8:50 Notice Type: Patient Choice Letter Notice Delivered To: Patient Relationship to Patient: Radio Operator Name: Delivery Method: HAND - Hand Delivered Roslyn Days: Prior Verbal Notification: Recipient Understood Notice: Yes Recipient Signature: Yes Med Rec Note Co-signed by Attending: Coverage Notice Comment: [facility] Last DP export: 09/22/19 2:39 Patient Name: GABRIEL ABEBE Page 16170 at 1612 All edits/amendments must be made on the electronic document DICTATION DATE: 09/22/191611 E COMMERCE ARCHITECT: LIZZY 09/22/191611 RPT#: [id number] DC DATE:09/22/19 STATUS: DIS IN [facility] [address] [place] [address] END OF REPORT
--- NOTE | 2019-09-23 16:11 | MORECARE ---
CASE MANAGEMENT DISCHARGE SUMMARY PATIENT: GABRIEL ABEBE UNIT: [id number] ADM DATE: 09/19/19 AGE: 44 : 71 SEX: F ROOM/BED: D.2204 AUTHOR: LARISA MCNEAL PHYSICIAN: REFERRING PHYSICIAN: AMBROSIO MITCHELL MD DATE OF SERVICE: 09/23/19 Discharge Plan Patient Name: GABRIEL ABEBE Facility: [facility]:[place] : 1975 Planned Disposition: Home or Self Care Anticipated Discharge Date: Discharge Date: 09/22/2019 Expected LOS: Initial Reviewer: [email or web address] Initial Review Date: 09/19/2019 Generated: 09/23/19 5:11 pm DCP- Discharge Planning Updated by [email or web address]: Soco Hassan on 09/22/19 3:[address] REFERAL SENT TO [facility], SPOKE WITH KEHINDE DCP- Discharge Planning Updated by [email or web address]: Soco Hassan on 09/22/19 8:[address] Patient Name: GABRIEL ABEBE Admission Status: ER Accout number: [id number] Admission Date: 09-19-2019 : 1975 Admission Diagnosis: Attending: AMBROSIO MITCHELL Current LOS: 3 Anticipated DC Date: Planned Disposition: Home or Self Care Primary Insurance: [facility] [employer] [employer] Discharge Planning Comments: CM met with patient to complete initial dc planning assessment. CM educated patient on the CM role and verbal consent given by patient to complete assessment. Patient lives at home with her nephew where she stated she is independent with her care. At discharge patient plans to return home and feels this is a safe discharge. 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 CM discussed availability of home health, rehab services, and medical equipment. She has a nebulizer at home that she gets her meds through [facility]. She did ask about house help. I explained to her about [facility], she did not think she had the correct MAXX, but would like to see if she would qualify for it. [facility] for home instead, I will send a referral to them. IMM served and explained. Patient denied known discharge needs at this time. CM will continue to follow and will assist as needed with dc plans/needs. Heater Furnace: Soco Hassan DCPIA - Discharge Planning Initial Assessment Updated by [email or web address]: Soco Hassan on 09/22/19 8:58 am * Is the patient Alert and Oriented? Yes * How many steps to enter\exit or inside your home? * PCP [facility] [place] * Pharmacy [facility] [address] * Preadmission Environment Home with Family * ADLs Independent * Equipment Nebulizer * List name and contact numbers for known caregivers / representatives who currently or will assist patient after discharge: PUJA ADAM [phone] * Verbal permission to speak to the caregivers and representatives has been obtained from the patient. N/A * Community resources currently utilized None * Additional services required to return to the preadmission environment? Yes * Can the patient safely return to the preadmission environment? Yes * Has this patient been hospitalized within the prior 30 days at any hospital? No Coverage Notice Reviewer: [email or web address] Lou Hassan Notice Issued Date-Time: 09/22/2019 8:50 Notice Type: IM Discharge Notice Notice Delivered To: Patient Relationship to Patient: Sock Drier Name: Delivery Method: HAND - Hand Delivered Roslyn Days: Prior Verbal Notification: Recipient Understood Notice: Yes Recipient Signature: Yes Med Rec Note Co-signed by Attending: Coverage Notice Comment: Reviewer: [id number] - Soco Hassan Notice Issued Date-Time: 09/22/2019 8:50 Notice Type: Patient Choice Letter Notice Delivered To: Patient Relationship to Patient: Sock Drier Name: Delivery Method: HAND - Hand Delivered Roslyn Days: Prior Verbal Notification: Recipient Understood Notice: Yes Recipient Signature: Yes Med Rec Note Co-signed by Attending: Coverage Notice Comment: [facility] Last DP export: 09/22/19 3:12 Patient Name: GABRIEL ABEBE Page [id number] at 1611 All edits/amendments must be made on the electronic document DICTATION DATE: 09/23/191610 SORTER PRICER: LIZZY 09/23/191610 RPT#: [id number] DC DATE:09/22/19 STATUS: DIS IN [facility] [address] [place] [address] END OF REPORT
--- NOTE | 2019-09-27 11:40 | EC ---
PATIENT:GABRIEL ABEBE DATE OF SERVICE: 09/19/19 SEX: F MEDICAL RECORD: [id number] DATE OF : [birth year] LOCATION:[facility] AGE OF PATIENT: 44 ADMISSION DATE: 09/19/19 REFERRING PHYSICIAN: INTERPRETING PHYSICIAN: ANGI WOLFF MD ECHOCARDIOGRAM REPORT ECHO CHARGES 4 ECHO COMPLETE Date: 09/19/19 CLINICAL DIAGNOSIS: PULMONARY EDEMA ECHOCARDIOGRAPHIC MEASUREMENTS (adult normal given) AC root (d.<3.7cm) 3.0 cm LV Septum d (<1.2 cm> 0.6 cm Valve Excursion 2.0 cm LV Septum (systole) 1.1 cm Left Atria (s.<4.0cm> 3.7 cm LVPW d(<1.2cm) 1.1 cm RV (d.<2.3cm) 2.4 cm LVPW (sytole) 1.4 cm LV diastole(<5.6CM) 5.7 cm MV E-F(>70mm/sec) cm LV systole 3.6 cm LVOT Diameter 2.1 cm MV exc.(>10mm) cm Est.ejection fraction (50-75%) % DOPPLER: LVIT cm/sec A 70 cm/sec E 50 cm/sec LA cm/sec RVSP 15.6 mmHg LVOT 88 cm/sec AOP1/2T m/s Asc. Ao 100 cm/sec RVOT 64 cm/sec RA cm/sec PA 56 cm/sec AV Gradient Peak 4.0 mmHg AV Mean 2.2 mmHg AV Area 2.9 cm MV Gradient Peak 2.8 mmHg MV Mean 1.0 mmHg MV Area cm COMMENTS: Legal Manager: Kelvin [facility] Ergonomist: 1 Dr. Wolff TAPE# PACS Pericardial Effusion N DATE OF SERVICE: PROCEDURE: Echocardiogram. FINDINGS: 1. Left ventricular chamber size is within normal limits. Left ventricular systolic function is normal. Overall ejection fraction estimated at 65%. 2. Left atrium, right atrium, and right ventricular chamber sizes are within normal limits. 3. Valvular structures have normal structure and motion. ECHOCARDIOGRAM REPORT [id number] GABRIEL ABEBE 4. Doppler interrogation reveals mild mitral regurgitation, no other valvular insufficiency or stenosis. 5. No evidence of pericardial effusion or left ventricular thrombus. TRANSINT:[id number] Voice Confirmation ID: [id number] DOCUMENT ID: [id number] ANGI WOLFF MD at 1140 CC: [id number] DICTATION DATE: 09/20/19 1053 SEMICONDUCTOR WAFERS MARKER: 09/20/19 1101 DIS IN 09/22/19 [facility] [address] [place] [id number]
== END 2019-09-22 11:54 | disposition home or self-care (01) | DRG 193 ==
LOC: D.ER 22:03 → D.MS 09-19 00:26
PROVIDERS: Family Medicine; Internal Medicine Nephrology; ADMIT Family Medicine; ATTEND Family Medicine
DX: J11.00 Influenza due to unidentified influenza virus with unspecified type of pneumonia (principal); I50.31 Acute diastolic (congestive) heart failure; J96.01 Acute respiratory failure with hypoxia; N17.0 Acute kidney failure with tubular necrosis; F17.203 Nicotine dependence unspecified, with withdrawal; D86.0 Sarcoidosis of lung; J18.9 Pneumonia, unspecified organism; E66.9 Obesity, unspecified; Z68.35 Body mass index [BMI] 35.0-35.9, adult; Z86.73 Personal history of transient ischemic attack (TIA), and cerebral infarction without residual deficits; Z85.41 Personal history of malignant neoplasm of cervix uteri; I95.9 Hypotension, unspecified